=== PATIENT | female | born 1960 | race Caucasian/White ===

== ENCOUNTER 2017-10-01 13:43 | Emergency (ER) | payer BC, MEDICAID ==
[~2017-10-01] VITALS: Ht 172.7 cm; Wt 104.3 kg
[~2017-10-01 13:43] MED LIST: ALBU-136 IH; ALBU0.099 IH; LEVA1.2524 IH
[2017-10-01 13:54] VITALS: BP 131/76
--- NOTE | 2017-10-01 13:58 | NUR ---
pt ambulates to bed 4 report given to [facility]
--- NOTE | 2017-10-01 14:08 | NUR ---
PATIENT PRESENTS TO ED WITH c/o back pain unable to get up from supine possition x 2 wks; trip and fell on wednesday, hx; copd, asthma, herniated disc, total left knee replacement, PATIENT STATES PAIN OF 6/10 AT THIS TIME; VSS; PATIENT POSITIONED FOR COMFORT; HOB ELEVATED; BEDRAILS UP X2; BED DOWN. ER MD MADE AWARE OF PT STATUS.
--- NOTE | 2017-10-01 14:30 | NUR ---
Patient being evaluated by physician at bedside.
--- NOTE | 2017-10-01 15:21 | NUR ---
PT IS OFF UNIT FOR CT VIA WHEELCHAIR BY RN [facility]
[2017-10-01 16:37] VITALS: BP 131/76
--- NOTE | 2017-10-01 16:37 | NUR ---
Patient discharged with v/s stable. Written and verbal after care instructions given and explained. Patient alert, oriented and verbalized understanding of instructions. Ambulatory with steady gait. All questions addressed prior to discharge. ID band removed. Patient advised to follow up with PMD. Rx of VOLTAREN XR, VISTARIL given. Patient educated on indication of medication including possible reaction and side effects. Opportunity to ask questions provided and answered.
== END 2017-10-01 16:37 | disposition home or self-care (01) ==
LOC: MED 13:43
DX: S29.012A Strain of muscle and tendon of back wall of thorax, initial encounter (principal); M51.37 Other intervertebral disc degeneration, lumbosacral region; M51.34 Other intervertebral disc degeneration, thoracic region; J44.9 Chronic obstructive pulmonary disease, unspecified; Z79.899 Other long term (current) drug therapy; Z88.5 Allergy status to narcotic agent; Z88.8 Allergy status to other drugs, medicaments and biological substances; Z96.652 Presence of left artificial knee joint; W01.0XXA Fall on same level from slipping, tripping and stumbling without subsequent striking against object, initial encounter; Y93.89 Activity, other specified; Y92.89 Other specified places as the place of occurrence of the external cause; Y99.8 Other external cause status
CPT/HCPCS: 72128; 72131; 99284

== ENCOUNTER 2019-04-08 08:33 | Emergency (ER) | payer OTHER ==
[~2019-04-08] VITALS: Ht 160 cm; Wt 105.5 kg
[2019-04-08 08:40] VITALS: BP 107/83
--- NOTE | 2019-04-08 09:16 | NUR ---
Dr. Rosenberg is evaluating the patient at bedside.
[2019-04-08] MEDS: KETOROLAC 30 MG/ML VIAL IM ONE (10:03)
--- NOTE | 2019-04-08 10:44 | NUR ---
Dr. Rosenberg is re-evaluating the patient at bedside.
[2019-04-08 10:52] VITALS: BP 142/87
--- NOTE | 2019-04-08 10:54 | NUR ---
Patient discharged with v/s stable. Written and verbal after care instructions given and explained. Patient verbalized understanding. Ambulatory with steady gait. All questions addressed prior to discharge. Advised to follow up with PMD.
== END 2019-04-08 10:54 | disposition home or self-care (01) ==
LOC: MED 08:33
DX: S22.089A Unspecified fracture of T11-T12 vertebra, initial encounter for closed fracture (principal); S76.911A Strain of unspecified muscles, fascia and tendons at thigh level, right thigh, initial encounter; J44.9 Chronic obstructive pulmonary disease, unspecified; G89.29 Other chronic pain; X58.XXXA Exposure to other specified factors, initial encounter; Y93.89 Activity, other specified; Y92.89 Other specified places as the place of occurrence of the external cause; Y99.8 Other external cause status; Z88.5 Allergy status to narcotic agent; Z88.6 Allergy status to analgesic agent; Z79.899 Other long term (current) drug therapy
CPT/HCPCS: 72080; 73562; 96372; 99283; J1885

== ENCOUNTER 2019-06-11 11:49 | Emergency (ER) | payer SELFPAY ==
[~2019-06-11] VITALS: Ht 165.1 cm; Wt 106.3 kg
[2019-06-11 12:13] VITALS: BP 133/79
--- NOTE | 2019-06-11 12:15 | NUR ---
PATIENT AMBULATED WITH STEADY GAIT TO BED 3.
[2019-06-11] MEDS ORDERED: IBUP-2213 PO (12:21)
--- NOTE | 2019-06-11 12:39 | NUR ---
59/F C/O INTERMITTENT RT FLANK PAIN & LOW ABD PAIN X 3 WEEKS. C/O GENERALIZED ABD PAIN X FEW DAYS. DENIES FEVER. STATES "VOMITING SPIT ALL DAY YESTERDAY". DENIES BM CHANGES, LBM YESTERDAY. NO VAGINAL BLEEDING. OCCASIONAL HEMATURIA. DENIES DYSURIA, FREQUENCY, URGENCY. PAIN 8/10 HX ASTHMA, COPD, MASS IN RT KIDNEYS
[2019-06-11] MEDS: KETOROLAC 30 MG/ML VIAL IVP ONE (13:02)
[2019-06-11] MEDS: ONDANSETRON 4 MG/2 ML VIAL IVP ONE (13:02)
[2019-06-11] MEDS: PANTOPRAZOLE 40 MG INJ VIAL IVP ONE (13:02)
[2019-06-11] MEDS: NACL 0.9% 1,000 ML IV ONE (13:03)
[2019-06-11 13:17] LABS: BASOPHILS % (AUTO) 0.8 % (0.0-2.0); EOSINOPHILS # (AUTO) 0.2 K/uL (0-0.4); EOSINOPHILS % (AUTO) 3.2 % (0.0-4.0); HEMATOCRIT 38.8 % (36-48); HEMOGLOBIN 12.4 g/dL (12.0-16.0); LYMPHOCYTES # (AUTO) 1.8 K/uL (2.5-16.5); LYMPHOCYTES % (AUTO) 33.5 % (20.5-51.1); MEAN CORPUSCULAR HEMOGLOBIN 27 pg (27-31); MEAN CORPUSCULAR HGB CONC 32 g/dL (33-37); MEAN CORPUSCULAR VOLUME 83.4 fL (80-94); MONOCYTES # (AUTO) 0.3 K/uL (0.8-1.0); NEUTROPHILS # (AUTO) 3.1 K/uL (1.8-7.7); NEUTROPHILS % (AUTO) 56.5 % (42.2-75.2); PLATELET COUNT (AUTO) 344 K/uL (140-450); RED BLOOD CELL COUNT(AUTO) 4.65 MIL/uL (4.20-5.40); RED CELL DISTRIBUTION WIDTH 21.6 % (11.6-13.7); WHITE BLOOD COUNT (AUTO) 5.4 K/uL (4.8-10.8)
[2019-06-11 13:31] LABS: ALBUMIN 3.7 g/dL (3.4-5.0); ANION GAP 14.3 (8-16); CARBON DIOXIDE 26.9 mmol/L (21-32); POTASSIUM 4.2 mmol/L (3.5-5.1); TOTAL BILIRUBIN 0.3 mg/dL (0.0-1.0)
[2019-06-11 14:18] VITALS: BP 119/52
--- NOTE | 2019-06-11 15:59 | NUR ---
PT PULLED OUT HER OWN IV. STATES SHE DOES NOT WANT VITAL SIGNS TAKEN UPON DISCHARGE Written and verbal after care instructions given and explained REGARDING MEDICAL CLEARANCE. PT INFORMED THAT THERE WERE NO ABNORMAL RESULTS Patient verbalized understanding. Ambulatory with steady gait. All questions addressed prior to discharge.
== END 2019-06-11 15:59 | disposition home or self-care (01) ==
LOC: MED 11:49
DX: R10.30 Lower abdominal pain, unspecified (principal); J44.9 Chronic obstructive pulmonary disease, unspecified; Z00.8 Encounter for other general examination; Z79.899 Other long term (current) drug therapy; Z88.5 Allergy status to narcotic agent; Z88.1 Allergy status to other antibiotic agents
CPT/HCPCS: 36415; 76856; 80053; 81002; 81025; 83690; 85025; 96361; 96374; 96375; 99284; C9113; J1885; J2405; J7030; Q0092

== ENCOUNTER 2020-10-17 17:03 | Emergency (ER) | payer BC ==
[~2020-10-17] VITALS: Ht 154.9 cm; Wt 107.5 kg
[~2020-10-17 17:03] MED LIST changes: +ALBU-118 IH; -ALBU-136 IH; +IBUP-2213 PO
[2020-10-17 17:20] VITALS: BP 127/76
[2020-10-17 18:58] VITALS: BP 127/76
== END 2020-10-17 18:59 | disposition home or self-care (01) ==
LOC: MED 17:03
DX: S86.912A Strain of unspecified muscle(s) and tendon(s) at lower leg level, left leg, initial encounter (principal); J44.9 Chronic obstructive pulmonary disease, unspecified; Z88.5 Allergy status to narcotic agent; Z88.6 Allergy status to analgesic agent; Z79.899 Other long term (current) drug therapy; W01.0XXA Fall on same level from slipping, tripping and stumbling without subsequent striking against object, initial encounter; Y93.89 Activity, other specified; Y92.89 Other specified places as the place of occurrence of the external cause; Y99.8 Other external cause status
CPT/HCPCS: 73560; 99283

== ENCOUNTER 2021-01-24 09:11 | Emergency (ER) | payer BC ==
[~2021-01-24] VITALS: Ht 172.7 cm; Wt 104.3 kg
[2021-01-24 09:25] VITALS: BP 124/68
--- NOTE | 2021-01-24 09:30 | NUR ---
PATIENT AMBULATED TO BED 11.
--- NOTE | 2021-01-24 09:35 | NUR ---
60 Y/O F BIB SELF FROM HOME, PATIENT PRESENTS TO ED WITH C/O "POPPING" WITH UPPER BACK AND NECK. PT STATES HAS BEEN WORSENING WITH MOVEMENT FOR PAST 4 DAYS. DENIES N/V/D; SKIN IS PINK/WARM/DRY; AAOX4 WITH EVEN AND STEADY GAIT; LUNGS CLEAR BL; HR EVEN AND REGULAR; PT DENIES ANY FEVER, CP, SOB, OR COUGH AT THIS TIME; PATIENT STATES PAIN OF 0/10 AT THIS TIME; VSS; PATIENT POSITIONED FOR COMFORT; HOB ELEVATED; BEDRAILS UP X2; BED DOWN. ER MD MADE AWARE OF PT STATUS. PMH: COPD, ASTHMA MED: DENIES
[2021-01-24 10:36] LABS: BASOPHILS # (AUTO) 0.1 K/uL (0.00-0.22); BASOPHILS % (AUTO) 1.1 % (0.0-2.0); EOSINOPHILS # (AUTO) 0.2 K/uL (0-0.4); EOSINOPHILS % (AUTO) 2.8 % (0.0-4.0); HEMOGLOBIN 13.3 g/dL (12.0-16.0); LYMPHOCYTES # (AUTO) 1.6 K/uL (2.5-16.5); MEAN CORPUSCULAR HEMOGLOBIN 31 pg (27-31); MEAN CORPUSCULAR HGB CONC 33 g/dL (33-37); MEAN CORPUSCULAR VOLUME 91.9 fL (80-94); MONOCYTES # (AUTO) 0.4 K/uL (0.8-1.0); MONOCYTES % (AUTO) 6.4 % (1.7-9.3); NEUTROPHILS % (AUTO) 64.7 % (42.2-75.2); PLATELET COUNT (AUTO) 358 K/uL (140-450); RED BLOOD CELL COUNT(AUTO) 4.36 MIL/uL (4.20-5.40); RED CELL DISTRIBUTION WIDTH 15.2 % (11.6-13.7); WHITE BLOOD COUNT (AUTO) 6.2 K/uL (4.8-10.8)
[2021-01-24 10:39] LABS: ALBUMIN 3.7 g/dL (3.4-5.0); ANION GAP 14.9 (8-16); CARBON DIOXIDE 25.5 mmol/L (21-32); POTASSIUM 4.4 mmol/L (3.5-5.1); TOTAL BILIRUBIN 0.3 mg/dL (0.0-1.0)
[2021-01-24] MEDS ORDERED: NAPR-54 PO (11:37)
[2021-01-24 11:54] VITALS: BP 124/68
== END 2021-01-24 11:54 | disposition home or self-care (01) ==
LOC: MED 09:11
DX: S16.1XXA Strain of muscle, fascia and tendon at neck level, initial encounter (principal); J44.9 Chronic obstructive pulmonary disease, unspecified; Z88.6 Allergy status to analgesic agent; Z88.5 Allergy status to narcotic agent; X58.XXXA Exposure to other specified factors, initial encounter; Y93.89 Activity, other specified; Y92.89 Other specified places as the place of occurrence of the external cause; Y99.8 Other external cause status
CPT/HCPCS: 36415; 72125; 80053; 85025; 99284

== ENCOUNTER 2021-04-30 11:12 | Emergency (ER) | payer BC ==
[~2021-04-30] VITALS: Ht 167.6 cm; Wt 90.7 kg
[~2021-04-30 11:12] MED LIST changes: +NAPR-54 PO
[2021-04-30 11:39] VITALS: BP 131/80
[2021-04-30] MEDS ORDERED: POLY10SO OP (12:01)
--- NOTE | 2021-04-30 13:13 | NUR ---
NOVEL SWAB COLLECTED AND WALKED TO LAB
--- NOTE | 2021-04-30 13:13 | NUR ---
NO NURSING INTERVENTIONS PROVIDED
[2021-04-30 13:14] VITALS: BP 131/80
--- NOTE | 2021-04-30 13:14 | NUR ---
Patient discharged with v/s stable. Written and verbal after care instructions BACTERIAL CONJUNCTIVITIS given and explained. Patient alert, oriented and verbalized understanding of instructions. Ambulatory with steady gait. All questions addressed prior to discharge. ID band removed. Patient advised to follow up with PMD. Rx of POLYTRIM EYE DROPS given. Patient educated on indication of medication including possible reaction and side effects. Opportunity to ask questions provided and answered.
== END 2021-04-30 13:14 | disposition home or self-care (01) ==
LOC: MED 11:12
DX: U07.1 COVID-19 (principal)
CPT/HCPCS: 99283; U0003

== ENCOUNTER 2023-04-23 14:30 | Emergency (ER) | payer BC ==
[~2023-04-23] VITALS: Ht 170.2 cm; Wt 90.7 kg
[~2023-04-23 14:30] MED LIST changes: +POLY10SO OP
[2023-04-23 14:44] VITALS: BP 101/71; PULSE 82; RESP 15; TEMP 96.8; O2SAT 96
[2023-04-23 19:16] VITALS: BP 101/74; PULSE 85; RESP 17; O2SAT 98
== END 2023-04-23 19:14 | disposition home or self-care (01) ==
LOC: MED 14:30
DX: M13.812 Other specified arthritis, left shoulder (principal); M13.811 Other specified arthritis, right shoulder; M54.50 Low back pain, unspecified; J44.9 Chronic obstructive pulmonary disease, unspecified; J45.909 Unspecified asthma, uncomplicated; Z79.899 Other long term (current) drug therapy
CPT/HCPCS: 72128; 73020; 99284

== ENCOUNTER 2023-07-09 14:45 | Emergency (ER) | payer BC, OTHER ==
[~2023-07-09] VITALS: Ht 172.7 cm; Wt 94.3 kg
[2023-07-09 15:24] VITALS: BP 124/71; PULSE 77; RESP 18; TEMP 97.4; O2SAT 94
[2023-07-09 18:27] VITALS: BP 118/78; PULSE 68; RESP 18; TEMP 97.4; O2SAT 95
== END 2023-07-09 18:27 | disposition home or self-care (01) ==
LOC: MED 14:45
DX: S80.01XA Contusion of right knee, initial encounter (principal); S20.212A Contusion of left front wall of thorax, initial encounter; J44.9 Chronic obstructive pulmonary disease, unspecified; Z79.899 Other long term (current) drug therapy; W18.39XA Other fall on same level, initial encounter; Y92.89 Other specified places as the place of occurrence of the external cause; Y93.89 Activity, other specified; Y99.8 Other external cause status
CPT/HCPCS: 71250; 73562; 99284

== ENCOUNTER 2023-09-14 19:09 | Emergency (ER) | payer OTHER ==
[~2023-09-14] VITALS: Ht 175.3 cm; Wt 90.7 kg
[~2023-09-14 19:09] MED LIST changes: +NAPR-337 PO; -NAPR-54 PO
[2023-09-14 19:53] VITALS: BP 108/65; PULSE 69; RESP 20; TEMP 97.4; O2SAT 95
[2023-09-14] MEDS: KETOROLAC 30 MG/ML VIAL IM ONE (20:25)
[2023-09-14] MEDS ORDERED: LID5T TP (21:52)
== END 2023-09-14 22:23 | disposition home or self-care (01) ==
LOC: MED 19:09
DX: M54.50 Low back pain, unspecified (principal); M25.561 Pain in right knee; M43.20 Fusion of spine, site unspecified; Z79.899 Other long term (current) drug therapy
CPT/HCPCS: 72100; 73562; 96372; 99284; J1885

== ENCOUNTER 2024-02-01 13:30 | Emergency (ER) | payer OTHER ==
[~2024-02-01] VITALS: Ht 172.7 cm; Wt 95.3 kg
[~2024-02-01 13:30] MED LIST changes: +LID5T TP
[2024-02-01 13:52] VITALS: BP 113/70; PULSE 66; RESP 20; TEMP 97.8; O2SAT 99
== END 2024-02-01 19:00 | disposition home or self-care (01) ==
LOC: MED 13:30
DX: G89.29 Other chronic pain (principal); M54.6 Pain in thoracic spine; M54.50 Low back pain, unspecified; J44.9 Chronic obstructive pulmonary disease, unspecified; Z79.899 Other long term (current) drug therapy
CPT/HCPCS: 72080; 72100; 99284